=== PATIENT | female | born 1970 | race Caucasian/White ===

== ENCOUNTER 2019-06-06 14:24 | Emergency (ER) | payer SELFPAY ==
[2019-06-06 15:14] VITALS: BP 130/77; PULSE 94; RESP 20; TEMP 39; O2SAT 94; BMI 30.9
[2019-06-06 17:23] VITALS: TEMP 37.3
--- NOTE | 2019-06-06 17:23 | ED_ITS ---
HPI - Fever General: Chief Complaint: Fever Stated Complaint: flu Time Seen by Provider: 06/06/19 17:19 History of Present Illness: HPI Narrative: Patient is a 48-year-old female comes to the ED with fever. Patient was recently seen at urgent care and influenza swab was performed and lab was positive. Her symptoms of fever, body aches and cough started on Thursday. Patient says cough is dry and nonproductive. Patient took ibuprofen and Tylenol earlier today to help with fever.Denies any diarrhea, chest pain, shortness of breath, Abdominal pain, nausea, vomiting, hematuria, dysuria, diarrhea. Review of Systems General: Reports: 10 or more systems reviewed and unremarkable except in HPI and below PFSH ED PFSH: Statuses (acute, chronic, etc) shown below reflect problem list status as previously entered and may not be historically accurate Social History Smoking and tobacco status: current every day smoker Alcohol intake: never Physical Exam Narrative: EXAM NARRATIVE: Patient is a 48-year-old female who doesn't appear to be in any acute pain or distress when I enter the room. She also is showing no signs of respiratory distress. Const: COMMON NORMALS: oriented x3 HENMT: COMMON NORMALS: normocephalic HEAD & SCALP: normocephalic MOUTH: oral and palatal mucosa normal THROAT: posterior oropharynx normal and uvula midline Neck/C-Spine: COMMON NORMALS: supple GENERAL: Yes normal visual inspection Resp: COMMON NORMALS: normal respiratory effort, no retractions, no use of accessory muscles and clear to auscultation bilaterally AUSCULTATION: clear to auscultation bilaterally Cardio: COMMON NORMALS: regular rate, regular rhythm, S1 normal heart sound, S2 normal heart sound, no gallops, no clicks, no murmurs and peripheral pulses 2+ throughout RATE: regular rate RHYTHM: regular rhythm HEART SOUNDS: S1 normal and S2 normal PERIPHERAL PULSES: pulses 2+ throughout GI: COMMON NORMALS: normal to inspection, nondistended, normoactive bowel sounds, soft to palpation, non-tender and no masses PALPATION: Yes soft : COMMON NORMALS: Yes no CVA tenderness BLADDER/KIDNEY EXAM: Yes no CVA tenderness Back/Pelvis: COMMON NORMALS: no CVA tenderness Extremity: GENERAL: Yes normal exam except as noted Neuro: COMMON NORMALS: oriented x3 and moves all extremities Skin: COMMON NORMALS: no rashes or lesions noted GENERAL SKIN EXAM: no rashes or lesions noted Course ED course: Patient was diagnosed with influenza and the urgent care clinic today. Patient is able to drink by mouth and keep them down while here in the ED. Vital Signs: Vital signs: Vital Signs Temperature 98.4 F 06/06/19 18:35 Pulse Rate 83 06/06/19 18:35 Respiratory Rate 16 06/06/19 18:35 Blood Pressure 103/69 06/06/19 18:35 Pulse Oximetry 94 06/06/19 18:35 MDM - Fever MDM Narrative: Medical decision making narrative: Patient is a 48-year-old female comes in in the ED with fever and chills. She was seen at the urgent care clinic today and had a positive influenza test. Chest x-ray was performed here in the ED and showed no acute findings pending radiology report. Imaging Data^: CXR: Attestation: I personally reviewed and interpreted this imaging study as follows: My impression: No acute findings. Pending final radiology report. Discharge Plan Discharge Patient Disposition: Home, Self-Care Clinical Impression: Influenza Condition: Stable Prescriptions: New Tamiflu 75 mg capsule 75 mg PO BID 5 Days Qty: 10 RF: 0 No Action fluoxetine [Prozac] 20 mg capsule 20 mg PO DAILY RF: 0 ibuprofen 800 mg tablet 800 mg PO TID RF: 0 Discharge Orders: Discharge Order (Routine); Ordered 06/06/19 Ordered By: Rah Swartz Referrals: Michela Vera DO [Primary Care Provider] - Discharge Diet: Regular Discharge Activity: Increase activity as tolerated Patient Instructions: Influenza (ED) Activity Restrictions/Additional Instructions: Follow-up with PCP in 5-7 days for reevaluation. Take Tamiflu as prescribed. Drink plenty of fluids and stay hydrated. Take Tylenol and/or ibuprofen as needed for fevers. I would recommend staying home from work tomorrow and getting rest. If he started having a productive cough continuing high fevers and/or trouble breathing please return to the ED Discharge Date/Time: 06/06/19 18:25 Coding Level of Care Code ED Manager Respiratory for Beni Lindsey
--- NOTE | 2019-06-06 17:32 | XR_ITS ---
WS: [id number] Portable AP upright chest, 06/06/2019 Clinical Data: cough and fever Comparison: Portable chest, 02/09/2016. Findings: No nodules, masses or effusions are seen. The heart is normal. The pulmonary vascularity is not increased. No pneumonia or pneumothorax is seen. There is minimal linear atelectasis over the monk rface of the left diaphragm. XR/XR chest 1V portable [id number] Impression: Negative chest.
[2019-06-06 18:35] VITALS: BP 103/69; PULSE 83; RESP 16; TEMP 36.9; O2SAT 94
== END 2019-06-06 18:25 | disposition home or self-care (01) ==
PROVIDERS: Emergency Provider Physician Assistant; Family Provider Family Medicine; PCP Family Medicine
DX: J11.1 Influenza due to unidentified influenza virus with other respiratory manifestations (principal); F17.210 Nicotine dependence, cigarettes, uncomplicated
CPT/HCPCS: 71045; 87804; 99281; 99283

== ENCOUNTER 2019-07-11 09:24 | Emergency (ER) | payer SELFPAY ==
[2019-07-11 09:32] VITALS: BMI 31.5
[2019-07-11 09:35] VITALS: BP 100/70; PULSE 82; RESP 16; TEMP 36.7; O2SAT 99
[2019-07-11] MEDS: eye irrigation 30 mL Btl EYE-RIGHT (09:48)
[2019-07-11] MEDS: tetracaine 0.5% Op Soln 4 mL Btl 1 DROP EYE-RIGHT (09:48)
[2019-07-11] MEDS: fluorescein 1 mg Strip EYE-RIGHT (09:48)
--- NOTE | 2019-07-11 10:35 | ED_ITS ---
HPI - Eye Problem General: Chief complaint: Eye Problems Stated complaint: RIGHT EYE PAIN Time Seen by Provider: 07/11/19 09:31 Source: patient Mode of arrival: ambulatory Limitations: no limitations History of Present Illness: HPI Narrative: Patient is a 48-year-old female who presents to ED today with complaints of right eye pain and redness that began today. Patient denies any injury or trauma to her eye. She is not having any visual changes or loss of vision. She denies foreign body sensation. chief complaint: eye pain and eye redness Onset (ago): hour(s) Duration: constant Location: right eye Eye Symptoms: redness and pain Mechanism: none Associated symptoms: Reports no associated symptoms; Denies fever(s) or headache(s) Treatments Prior to Arrival: none Review of Systems Const: Denies: fever, chills, body aches, change in appetite, change in weight or fatigue Eyes: Reports: eye discomfort and eye redness; Denies: change in vision, blurry vision, blind spots, photophobia, eye discharge, yellow eyes, floaters or seeing flashes ENMT: Denies: throat pain, enlarged tonsils, painful swallowing, ear pain, ear discharge, nasal discharge, nasal congestion, nasal obstruction, post nasal drip or facial/sinus pain Resp: Denies: productive cough or non-productive cough Skin/Breast: Denies: rash Neuro: Denies: headache PFSH ED PFSH: Medical History (Updated 07/11/19 @ 10:35 by SOWMYA Herrmann) Chronic neck pain History of cervical cancer Pain in multiple finger joints Panic attack as reaction to stress Surgical History (Updated 07/07/19 @ 13:31 by Shonna Ruelas DO) H/O LEEP H/O lumpectomy Social History Smoking and tobacco status: current every day smoker cigarettes Packs smoked per day: 0.5 Alcohol intake: never Physical Exam Const: COMMON NORMALS: no apparent distress, average body habitus, oriented x3, no limitations, healthy appearing, alert and well nourished HENMT: COMMON NORMALS: normocephalic, head/scalp atraumatic, hearing grossly normal bilaterally, external ears normal, EAC's normal, TM's normal bilaterally, external nose normal, nasal mucous membranes and turbinates normal, moist oral mucous membranes, oropharynx normal, dentition normal and gingiva normal HEAD & SCALP: normocephalic and atraumatic NOSE: external nose normal and nasal mucous membranes and turbinates normal EXTERNAL EAR: Yes external ears normal EXTERNAL AUDITORY CANAL: EAC's normal TYMPANIC MEMBRANE: TM's normal bilaterally Eye: COMMON NORMALS: PERRL, EOMs intact bilaterally and no scleral icterus GENERAL EYE: normal light reflex VISUAL ACUITY: Yes acuity normal VISUAL KEMP: No peripheral vision loss and No central vision loss ALIGNMENT: Yes alignment normal PERIORBITAL: periorbital findings normal EYELID: eyelids normal CONJUNCTIVA: Yes conjunctiva abnormal (pt with medial R subconjunctival hemorrhage ) SCLERA: sclerae normal CORNEA: Yes corneas normal PUPIL: Yes PERRL and Yes accommodation reflex normal DIRECT OPHTHALMOSCOPY: Yes normal light reflex OTHER: eye pressures: 14mmHg on L eye, 15mmHg on R eye eye was examined with rivas lamp/stain-no abrasion noted, no fb, no tear drop sign there is no hyphema present, no evidence for globe injury/rupture Neck/C-Spine: COMMON NORMALS: full ROM, no lymphadenopathy and no meningeal signs Neuro: COMMON NORMALS: oriented x3 SENSORIUM/ORIENTATION: Yes alert MENINGEAL SIGNS: Yes no meningeal signs Course Vital Signs: Vital signs: Vital Signs Temperature 98.0 F 07/11/19 09:35 Pulse Rate 82 07/11/19 09:35 Respiratory Rate 16 07/11/19 10:37 Blood Pressure 100/70 07/11/19 09:35 Pulse Oximetry 97 07/11/19 10:37 MDM - Eye Problem MDM Narrative: Medical decision making narrative: I do not see anything abnormal on her exam other than a right subconjunctival hemorrhage. Most of these are asymptomatic and since patient seems to be experiencing pain I will go ahead and refer her to ophthalmology for examination. She needs to return to the emergency department for worsening pain or any changes in her vision. Discharge Plan Discharge Patient Disposition: Home, Self-Care Clinical Impression: Subconjunctival hemorrhage of right eye Condition: Stable Prescriptions: No Action ibuprofen 800 mg tablet 800 mg PO TID RF: 0 venlafaxine [Effexor XR] 37.5 mg capsule,extended release 24hr 37.5 mg PO DAILY Qty: 30 RF: 0 Discharge Orders: Discharge Order (Routine); Ordered 07/11/19 Ordered By: Anabela Starkey Referrals: Alexsander Kendrick MD [Physician] - Michela Vera DO [Primary Care Provider] - Activity Restrictions/Additional Instructions: As discussed case management should contact you today or tomorrow to set you up with ophthalmology referral. Please return to the emergency department immediately for worsening pain or any changes in your vision or loss of vision. Discharge Date/Time: 07/11/19 10:37 Coding Level of Care Code ED Photovoltaic Solar Cell Designer for Beni Lindsey
[2019-07-11 10:37] VITALS: RESP 16; O2SAT 97
--- NOTE | 2019-07-11 16:05 | DCPLANNER ---
manager club had message to schedule a follow up appointment for patient with Dr. Kendrick. manager club called the office of Dr. Kendrick, gave clinic patients information, a follow up appointment is scheduled for Friday, July 12, 2019 at 2:30. manager club called patient and informed her of the appointment. Patient stated that she would attend the appointment. manager club was asked to fax records to the clinic, field nurse case manager faxed records to Dr. Kendrick office, [phone].
--- NOTE | 2019-07-13 11:03 | DCPLANNER ---
Patient attended appointment with Dr. Kendrick on 07.12.19.
== END 2019-07-11 10:37 | disposition home or self-care (01) ==
PROVIDERS: Emergency Provider Physician Assistant; Family Provider Family Medicine; PCP Family Medicine
DX: H11.31 Conjunctival hemorrhage, right eye (principal)
CPT/HCPCS: 12345; 99281; 99283

== ENCOUNTER 2019-08-11 08:39 | Outpatient (CLI) | payer SELFPAY ==
--- NOTE | 2019-08-11 08:51 | XR_ITS ---
WS: [id number] LUMBAR SPINE TECHNIQUE: 3 views of the lumbar spine CLINICAL INFORMATION: low back pain COMPARISON: September 05, 2016 FINDINGS: Five [id number] lumbar vertebral bodies. Mild lumbar curve convex left. Disc space heights are w ell preserved. Chronic appearing anterior wedging at T10-T12. Mild facet arthropathy L5-S1. XR/XR lumbar spine 2-3V* [id number] IMPRESSION: 1. Mild lumbar curve convex left. No acute compression fractures. 2. Mild chronic anterior wedging at T10-T12. 3. Mild facet arthropathy L5-S1.
== END 2019-08-11 08:40 | disposition home or self-care (01) ==
LOC: RADWPI 08:43
PROVIDERS: Family Provider Family Medicine; PCP Family Medicine; Visit Provider Family Medicine
DX: M54.5 Low back pain (principal); M47.817 Spondylosis without myelopathy or radiculopathy, lumbosacral region
CPT/HCPCS: 72100

== ENCOUNTER 2019-12-26 15:32 | Outpatient (CLI) | payer SELFPAY ==
[2019-12-26 16:41] LABS: Albumin Level 3.9 g/dL (3.5-5.2); Alkaline Phosphatase 80 IU/L (35-105); Blood Urea Nitrogen 12 mg/dL (6-20); Calcium 9.2 mg/dL (8.5-10.5); Carbon Dioxide 21 mmol/L (22-29); Chloride 107 mmol/L (98-107); Chol HDL Ratio 4.19 mg/dL (0.0-4.40); Cholesterol 180 mg/dL (0-200); Globulin 3.1 g/dL (1.3-4.6); Glomerular Filtration Rate 88.6 mL/min (90-130); Glucose 109 mg/dL (65-115); HDL Cholesterol 43 mg/dL (60-100); LDL Cholesterol Calculated 77 mg/dL (50-129); LDL HDL Ratio 1.79 RATIO (0.00-3.22); Osmolality Calculated 283 mOsm/kg (285-295); Sodium 138 mmol/L (136-145); Total Bilirubin 0.2 mg/dL (0.15-1.2); Triglycerides 298 mg/dL (0-150)
[2019-12-26 16:44] LABS: Alanine Aminotransferase 17 U/L (0-33); Anion Gap 14.7 (5-19); Aspartate Amino Transferase 18 U/L (0-32); Potassium 4.7 mmol/L (3.5-5.1)
== END 2019-12-26 15:33 | disposition home or self-care (01) ==
LOC: LAB 15:34
PROVIDERS: PCP Family Medicine; Visit Provider Family Medicine
DX: Z13.6 Encounter for screening for cardiovascular disorders (principal)
CPT/HCPCS: 36415; 80053; 80061; 85025

== ENCOUNTER 2019-12-27 08:13 | Outpatient (CLI) | payer SELFPAY ==
[2019-12-27 08:23] LABS: Basophils # 0.1 10^3/uL (0.0-0.1); Basophils % 1.2 %; Eosinophils # 0.6 10^3/uL (0.0-0.8); Eosinophils % 6.3 %; Hematocrit 43.2 % (37.0-47.0); Hemoglobin 13.7 g/dL (11.5-15.3); Lymphocytes # 2.5 10^3/uL (0.8-4.8); Lymphocytes % 26.9 %; Mean Corpuscular HGB Conc 31.7 g/dL (30.0-36.0); Mean Corpuscular Hemoglobin 30.5 pg (28.0-34.0); Mean Corpuscular Volume 96.2 fL (81-99); Mean Platelet Volume 10.2 fL (7.4-10.4); Monocytes # 0.6 10^3/uL (0.2-0.9); Monocytes % 6.7 %; Neutrophils # 5.46 10^3/uL (1.8-7.7); Neutrophils % 58.6 %; Nucleated Red Blood Cells % 0 %; Platelet Count 307 10^3/cmm (130-400); Red Blood Count 4.49 10^6/uL (4.1-5.3); Red Cell Distribution Width 12.1 % (12.1-15.1); White Blood Count 9.3 10^3/uL (4.0-10.0)
== END 2019-12-27 08:14 | disposition home or self-care (01) ==
LOC: LAB 08:13
PROVIDERS: PCP Family Medicine; Visit Provider Family Medicine
DX: Z13.6 Encounter for screening for cardiovascular disorders (principal)
CPT/HCPCS: 36415; 85025

== ENCOUNTER → 2020-02-23 13:22 | Outpatient (BNVA) | payer SELFPAY | PROVIDERS: PCP Family Medicine; Visit Provider Family Medicine | DX: Z12.31 Encounter for screening mammogram for malignant neoplasm of breast (principal); Z12.11 Encounter for screening for malignant neoplasm of colon; Z01.419 Encounter for gynecological examination (general) (routine) without abnormal findings | CPT/HCPCS: 88175 ==

== ENCOUNTER → 2020-03-16 14:15 | Outpatient (BNVA) | payer OTHER, SELFPAY | PROVIDERS: PCP Family Medicine; Visit Provider Surgery | DX: Z11.59 Encounter for screening for other viral diseases (principal); Z12.11 Encounter for screening for malignant neoplasm of colon | CPT/HCPCS: 87635 ==

== ENCOUNTER 2020-03-21 05:59 | Day surgery (SDC) | payer SELFPAY ==
[2020-03-21 06:10] VITALS: BP 143/84; PULSE 57; RESP 18; TEMP 34.8; O2SAT 97
[2020-03-21] MEDS: sodium chloride 0.9% 1,000 ML 30 ML IV (06:27)
--- NOTE | 2020-03-21 06:33 | W.PM.OPSUD ---
Surgery/Procedure H&P Update DATE OF PROCEDURE: March 21, 2020 DATE H&P PERFORMED: 02/23/20 H&P UPDATE INFORMATION: I have reviewed H&P completed within last 30 days, I have examined patient prior to procedure and No changes to prior documentation (Patient denies history of colon cancer or bleeding per rectum or nonintentional weight loss and she never had a colonoscopy before.) PREOP DIAGNOSIS: Screening colonoscopy PRIMARY INDICATION FOR PROCEDURE: The same PLANNED PROCEDURE: Operation Date: 03/21/20 07:00 Proposed Procedures p Colonoscopy 53880 Z12.11(Not Applicable) - Adelso Carias MD
--- NOTE | 2020-03-21 06:41 | ANES.PREANE2 ---
Pre-Anesthetic Assessment Pre-Anesthetic Assessment: Height/Weight: Height 1.6 m Weight 79.379 kg Temp Pulse Resp BP Pulse Ox 94.7 F L 57 L 18 143/84 97 03/21/20 06:10 03/21/20 06:10 03/21/20 06:10 03/21/20 06:10 03/21/20 06:10 Preop Diagnosis: Screening colonoscopy Proposed Procedure: Operation Date: 03/21/20 07:00 Proposed Procedures p Colonoscopy 99103 Z12.11(Not Applicable) - Adelso Carias MD Familial anesthetic complications: None Was Beta Lauren taken within 24 hours: N/A Last intake: Intake Last Liquid Date 03/20/20 Last Liquid Time 23:55 Last Solid Date 03/19/20 Social: Social History: Tobacco and No alcohol Exam: Pre-Anes Outpt Exam: alert, oriented x 3, clear to auscultation bilaterally and regular rate & rhythm Airway: Cervical ROM: WNL MP: 4 Dentition: Full Pulmonary: Pulmonary: Asthma GI: GI: GERD Musc/skel: Musc/skel: Lower Back Pain Anesthetic Plan: ASA status: 2 Anesthesia: MAC Risk of > 500 ml blood loss (7ml/kg in children): No Meds/Allergies Current Medications: Current Medications Generic Name Dose Route Start Last Admin Trade Name Freq PRN Reason Stop Dose Admin Sodium Chloride 1,000 mls @ 30 ml s/hr 03/21/20 06:15 03/21/20 06:27 Sodium Chloride 0.9% IV 03/22/20 06:14 30 mls/hr .Q24H BETHANY Administration PFSH Anesthesia PFSH: Medical History (Updated 02/23/20 @ 13:13 by Shonna Ruelas DO) Chronic neck pain History of cervical cancer Pain in multiple finger joints Panic attack as reaction to stress Surgical History H/O LEEP H/O lumpectomy Family History Other Cancer Diabetes Social History Smoking and tobacco status: current every day smoker cigarettes Packs smoked per day: 0.5 Alcohol intake: never Data Anesthesia Cardiac Studies: No Data to Display
[2020-03-21 07:23] VITALS: BP 110/79; PULSE 74; RESP 16; TEMP 36.2; O2SAT 96
[2020-03-21 07:37] VITALS: BP 132/80; PULSE 67; RESP 18; O2SAT 96
== END 2020-03-21 07:42 | disposition home or self-care (01) ==
PROVIDERS: PCP Family Medicine; Visit Provider Surgery
PROC: 0DJD8ZZ Inspection of Lower Intestinal Tract, Via Natural or Artificial Opening Endoscopic (ICD-10-PCS; CPT 45378; principal; 2020-03-21 07:00)
DX: Z12.11 Encounter for screening for malignant neoplasm of colon (principal); J45.909 Unspecified asthma, uncomplicated; Z85.41 Personal history of malignant neoplasm of cervix uteri; Z90.10 Acquired absence of unspecified breast and nipple; Z80.9 Family history of malignant neoplasm, unspecified; F17.210 Nicotine dependence, cigarettes, uncomplicated
CPT/HCPCS: 12345; 45378; J2704; J7030

== ENCOUNTER 2020-04-16 11:46 | Outpatient (CLI) | payer SELFPAY ==
--- NOTE | 2020-04-16 12:00 | MM_ITS ---
WS: [id number] SCREENING DIGITAL MAMMOGRAM WITH CAD HISTORY: screening mammogram COMPARISON: 03/14/2010 Bilateral CC and MLO views submitted. Computer aided detection analyzed. Breast composition: The breasts are extremely dense, which lowers the sensitivity of mammography. No suspicious masses, microcalcifications or architectural distortion. MM/[place] [id number] IMPRESSION: BI-RADS: 1-Negative FOLLOW UP: 1 Year Follow-up
== END 2020-04-16 11:47 | disposition home or self-care (01) ==
LOC: RADSHAW 11:48
PROVIDERS: PCP Family Medicine; Visit Provider Family Medicine
DX: Z12.31 Encounter for screening mammogram for malignant neoplasm of breast (principal)
CPT/HCPCS: 77067

== ENCOUNTER 2020-04-23 14:13 | Emergency (ER) | payer SELFPAY ==
[2020-04-23 14:19] VITALS: BP 144/93; PULSE 90; RESP 20; TEMP 36.5; O2SAT 99; BMI 32.9
--- NOTE | 2020-04-23 14:29 | XR_ITS ---
WS: [id number] Exam: XR chest 1V portable [id number] Date/Time of Exam: 04/23/2020 2:29 PM Reason For Exam: dyspnea/cough Comparison 06/06/2019. Findings: The lungs are clear and fully expanded. Costophrenic angles are sharp. No infiltrates. Bronchovascula r relief appears normal. Cardiac silhouette is unremarkable. Bony elements are intact. XR/XR chest 1V portable [id number] IMPRESSION: Unremarkable chest radiograph.
[2020-04-23 15:23] LABS: ABG PCO2 46.8 mmHg (35-45); Alveolar-Arterial Oxygen Gradi 1.8 mmHg (5-10); Base Excess ABG 3.3 mmol/L (-2.0-2.0); Blood Gas Allen Test Pos; Blood Gas Sample Type Arterial; Carboxyhemoglobin 3.7 %THgb (0.4-20.1); HCO3 ABG 28.8 mmol/L (22-26); HGB O2 Sat 92.6 % (95-100); Ionized Calcium Level - ABG 1.2 mmol/L (1.1-1.4); Methemoglobin 0.8 % (0.4-1.5); PO2 ABG 80.2 mmHg (80.0-100.0); Potassium Level - ABG 3.8 mmol/L (3.5-5.0); Total Hemoglobin 11.7 g/dL (12-16)
[2020-04-23 15:24] LABS: Blood Gas Sample Site Radial, left; Oxygen Device ROOM AIR
== END 2020-04-23 15:38 | disposition left against medical advice (07) ==
LOC: ER 14:38
PROVIDERS: Family Medicine; Emergency Provider Nurse Practitioner Family; PCP Family Medicine
DX: Z53.21 Procedure and treatment not carried out due to patient leaving prior to being seen by health care provider (principal)
CPT/HCPCS: 36600; 71045; 80051; 82330; 82805; 83605; 99281

== ENCOUNTER → 2020-05-16 16:40 | Outpatient (BNVA) | payer SELFPAY | PROVIDERS: PCP Family Medicine; Visit Provider Family Medicine | DX: Z20.822 Contact with and (suspected) exposure to COVID-19 (principal); R05 Cough | CPT/HCPCS: 87635 ==

== ENCOUNTER 2020-05-21 08:09 | Outpatient (CLI) | payer SELFPAY ==
--- NOTE | 2020-05-21 09:03 | PFTS_ITS ---
Date of Study:05/21/20 Date of Dictation: MECHANICS: Forced vital capacity (FVC) is normal. Forced expiratory volume in one second (FEV1) is normal. FEV1/FVC is reduced. FLOW VOLUME LOOP: Minimal scooping. LUNG VOLUMES: Not performed. DIFFUSING CAPACITY FOR CARBON MONOXIDE: Not performed. INTERPRETATION: The postbronchodilator spirometry is consistent with mild obstruction. MTDD
== END 2020-05-21 08:10 | disposition home or self-care (01) ==
LOC: RT 08:11
PROVIDERS: PCP Family Medicine; Visit Provider Family Medicine
DX: R06.2 Wheezing (principal)
CPT/HCPCS: 94060; J7611

== ENCOUNTER 2020-09-09 07:22 | Outpatient (CLI) | payer SELFPAY ==
--- NOTE | 2020-09-09 | XRR_ITS ---
PROCEDURE INFORMATION: Exam: XR Chest Exam date and time: 09/09/2020 7:35 AM Age: 49 years old Clinical indication: Shortness of breath TECHNIQUE: Imaging protocol: XR of the chest. Views: 2 views. COMPARISON: CR XR chest 1V portable [id number] 04/23/2020 2:46 PM FINDINGS: Lungs: Hyperinflation and interstitial prominence. Pleural spaces: No pleural effusion. Heart/Mediastinum: Epicardial fat, without cardiomegaly. Bones/joints: Osteopenia and degenerative change. XR/XR chest 2V* [id number] IMPRESSION: Hyperinflation and interstitial prominence.
== END 2020-09-09 07:23 | disposition home or self-care (01) ==
LOC: RAD 07:27
PROVIDERS: PCP Family Medicine; Visit Provider Family Medicine
DX: R06.02 Shortness of breath (principal)
CPT/HCPCS: 71046

== ENCOUNTER → 2020-11-01 14:10 | Outpatient (BNVA) | payer BC, SELFPAY | PROVIDERS: PCP Family Medicine; Visit Provider Internal Medicine Pulmonary Disease | DX: Z01.818 Encounter for other preprocedural examination (principal); Z20.822 Contact with and (suspected) exposure to COVID-19 | CPT/HCPCS: 87635 ==

== ENCOUNTER 2020-11-07 13:06 | Outpatient (CLI) | payer BC, MEDICAID, SELFPAY ==
--- NOTE | 2020-11-07 13:30 | CT_ITS ---
WS: [id number] CT CHEST TECHNIQUE: Noncontrast CT of the chest with coronal and sagittal reformatted images. CLINICAL INFORMATION: emphysema COMPARISON: None. DLP: 668.[address] scans at [facility] use at least one of these dose optimization techniques: automat ed exposure control; mA and/or kV adjustment per patient size (includes targeted exams where dose is matched to clinical indication); or iterative reconstruction. FINDINGS: Mild chronic emphysematous changes. No acute pulmonary infiltrates. No consolidation or pleural fluid . Slight subsegmental atelectasis in the right middle lobe and right lower lobe. No suspicious pulmon jaymie parenchymal opacities. No mediastinal or hilar lymphadenopathy. No axillary lymphadenopathy. Adrenal glands are normal. Low- attenuation lesion right hepatic lobe likely hepatic cyst measuring 2.0 CM. Left renal cyst measuring 2.5 CM. Small esophageal hiatal hernia. CT/CT chest wo con [id number] IMPRESSION: 1. Mild chronic emphysematous changes. No acute pulmonary infiltrates. 2. Slight subsegmental atelectasis in the right middle lobe and right lower lo be. 3. No mediastinal or hilar lymphadenopathy. 4. Small esophageal hiatal hernia. 5. Left renal cyst measuring 2.5 CCM.
--- NOTE | 2020-11-07 13:55 | PFTS_ITS ---
Date of Study:11/07/20 Date of Dictation: MECHANICS: Forced vital capacity (FVC) is normal. Forced expiratory volume in one second (FEV1) is normal. FEV1/FVC is normal. FLOW VOLUME LOOP: Normal. LUNG VOLUMES: Total lung capacity (TLC) is normal. Residual volume (RV) is normal. DIFFUSING CAPACITY FOR CARBON MONOXIDE: Normal. INTERPRETATION: The pulmonary function tests are normal. There is no significant postbronchodilator response. Lung volumes are normal. Gas exchange (DLCO) is normal. MTDD
== END 2020-11-07 13:07 | disposition home or self-care (01) ==
LOC: RAD 13:08
PROVIDERS: PCP Family Medicine; Visit Provider Internal Medicine Pulmonary Disease
DX: J43.9 Emphysema, unspecified (principal); N28.1 Cyst of kidney, acquired; K44.9 Diaphragmatic hernia without obstruction or gangrene; J98.11 Atelectasis
CPT/HCPCS: 71250; 94060; 94618; 94726; 94729; J7611

== ENCOUNTER → 2021-06-13 12:06 | Outpatient (BNVA) | payer MEDICAID, SELFPAY | PROVIDERS: PCP Family Medicine; Visit Provider Social Worker | DX: F43.0 Acute stress reaction (principal); F33.2 Major depressive disorder, recurrent severe without psychotic features; F41.1 Generalized anxiety disorder | CPT/HCPCS: 90834 ==

== ENCOUNTER → 2021-06-26 11:37 | Outpatient (BNVA) | payer MEDICAID, SELFPAY | PROVIDERS: PCP Family Medicine; Visit Provider Social Worker | DX: F33.1 Major depressive disorder, recurrent, moderate (principal); F41.1 Generalized anxiety disorder | CPT/HCPCS: 90837; 90834 ==

== ENCOUNTER 2021-06-28 23:00 | Emergency (ER) | payer MEDICAID, SELFPAY ==
[2021-06-28 23:09] VITALS: BP 141/74; PULSE 95; RESP 24; TEMP 37; O2SAT 92; BMI 33.6
[2021-06-28 23:45] VITALS: PULSE 87; RESP 18; O2SAT 94
--- NOTE | 2021-06-28 23:47 | XRR_ITS ---
PROCEDURE INFORMATION: Exam: XR Chest Exam date and time: 06/28/2021 11:47 PM Age: 50 years old Clinical indication: Cough and shortness of breath; Patient HX: C/O SOB and cough TECHNIQUE: Imaging protocol: XR of the chest. Views: 1 view. COMPARISON: CT chest [facility] [id number] 11/07/2020 1:59 PM FINDINGS: Lungs: Unremarkable. No consolidation. Pleural spaces: Unremarkable. No pleural effusion. No pneumothorax. Heart/Mediastinum: Unremarkable. No cardiomegaly. Bones/joints: Unremarkable. XR/XR chest 1V portable [id number] IMPRESSION: No acute findings.
[2021-06-28 23:55] VITALS: PULSE 90
[2021-06-29 00:44] VITALS: BP 119/82; PULSE 92; RESP 18; O2SAT 95
[2021-06-29] MEDS: doxycycline 100 mg Tablet PO (01:31)
[2021-06-29 01:40] VITALS: PULSE 103; RESP 16; O2SAT 94
[2021-06-29 01:42] VITALS: PULSE 99
[2021-06-29 02:28] VITALS: PULSE 98; RESP 18; O2SAT 96
--- NOTE | 2021-06-29 02:50 | ED_ITS ---
HPI - SOB/Dyspnea General: Chief Complaint: Shortness of Breath/Dyspnea Stated Complaint: SOB Time Seen by Provider: 06/28/21 23:32 Source: patient and family Mode of arrival: ambulatory History of Present Illness: HPI Narrative: 50-year-old female with a history of COPD. She presents with worsening cough, shortness of breath, wheezing despite use of her inhaler at home. She denies any fever. She has had some scant sputum production. MD elicited complaint: shortness of breath and cough Pertinent past history: COPD Onset (ago): day(s) Context: recent illness Timing: constant and progressively worsening Exacerbating factors: lying flat, exertion and coughing Relieving factors: nothing Known history of: COPD Associated symptoms: Reports chest congestion, chest pain (With cough) and cough; Deny abdominal pain, fever(s), nausea, rash or vomiting Treatment prior to arrival: bronchodilator Review of Systems Const: Denies: fever(s) ENMT: Denies: throat pain Card: Reports: chest pain (With cough) Resp: Reports: chest congestion GI: Denies: abdominal pain, nausea or vomiting PFS ED PFSH: Medical History (Updated 06/29/21 @ 01:09 by Ilan Martin DO) Chronic neck pain Encounter for screening colonoscopy Screening colonoscopy in 10 years History of cervical cancer Pain in multiple finger joints Panic attack as reaction to stress Psychiatric care Stage 1 mild COPD by GOLD classification Surgical History H/O LEEP H/O lumpectomy Family History Other Cancer Diabetes Social History Quit status (tobacco): considering quitting Second hand smoke exposure: Yes Smoking risk assessment/counseling performed?: Yes Alcohol intake: never Lives independently: Yes Household members: none Marital status: / Current occupational status: employed Pets and animals: Yes History of recent travel: No Current gender identity: Female Physical Exam Const: GENERAL APPEARANCE: cooperative and ill appearing (mildly) HENMT: COMMON NORMALS: normocephalic and atraumatic HEAD & SCALP: normocephalic and atraumatic Eye: COMMON NORMALS: Equal, round and reactive pupils present and EOMs intact bilaterally PUPIL: Yes Equal, round and reactive pupils present Chest: COMMONS NORMALS: normal inspection of the chest Resp: AUSCULTATION: wheezes and diminished lung sounds Cardio: COMMON NORMALS: regular rate, regular rhythm and Peripheral pulses 2+ throughout RATE: regular rate RHYTHM: regular rhythm PERIPHERAL PULSES: Peripheral pulses 2+ throughout GI: COMMON NORMALS: Normal to inspection, nondistended, normoactive bowel sounds present Course Vital Signs: Vital signs: Vital Signs Temperature 98.6 F 06/28/21 23:09 Pulse Rate 98 06/29/21 02:28 Respiratory Rate 18 06/29/21 02:28 Blood Pressure 119/82 06/29/21 00:44 Pulse Oximetry 96 06/29/21 02:28 MDM - SOB/Dyspnea Medical Decision Making Chest x-ray is negative. She is improved after breathing treatments here. She is given Solu-Medrol 125 mg IM. Covid PCR is pending. We will try treatment at home. Steroid burst with antibiotic coverage. Scheduled inhaler use. We have written orders for a nebulizer as well. Lab Data Labs/Radiology: Radiology Impressions Chest X-Ray 06/28/21 23:47 IMPRESSION: No acute findings. Discharge Plan Discharge Patient Disposition: Home Clinical Impression: Acute exacerbation of chronic obstructive airways disease Condition: Stable Prescriptions: New doxycycline hyclate 100 mg capsule 100 mg PO BID 7 Days Qty: 14 0RF prednisone 20 mg tablet 60 mg PO DAILY Qty: 15 0RF albuterol sulfate 2.5 mg /3 mL (0.083 %) solution for nebulization 2.5 mg inhalation Q4H PRN (Reason: shortness of breath or wheezing) Qty: 90 1RF (DME) nebulizer and compressor Device See Rx Instructions .ROUTE Qty: 1 0RF Rx Instructions: As directed No Action aripiprazole [Abilify] 2 mg tablet 2 mg PO DAILY Qty: 30 2RF Rx Instructions: 340 B paroxetine HCl 30 mg tablet 30 mg PO DAILY Qty: 30 2RF Rx Instructions: 340 B omeprazole 40 mg capsule,delayed release(DR/EC) 40 mg PO DAILY Qty: 30 2RF Rx Instructions: 340 B meloxicam 15 mg tablet 15 mg PO DAILY 0RF ibuprofen 800 mg tablet 800 mg PO Q8H 0RF tramadol 50 mg tablet PO 0RF gabapentin 300 mg capsule PO 0RF nicotine (polacrilex) 2 mg gum 2 mg buccal Q2H Qty: 50 3RF nicotine 21-14-7 mg/24 hr patch, TD daily, sequential See Rx Instructions transdermal .COMPLEX Qty: 56 0RF Rx Instructions: apply 1-21 mg NICOTINE PATCH daily for 28 days; follow with 1-14 mg PATCH daily for 14 days, then 1-7mg PATCH daily for 14 days transdermal Anoro Ellipta 62.5-25 mcg/actuation blister with device 1 inh inhalation DAILY Qty: 60 3RF albuterol sulfate [ProAir HFA] 90 mcg/actuation HFA aerosol inhaler 2 puff inhalation 6XD PRN (Reason: shortness of breath or wheezing) Qty: 8.5 2RF Rx Instructions: 340 B alprazolam [Xanax] 1 mg tablet 1 mg PO TID PRN0RF Discharge Orders: Discharge ED (Routine); Ordered 06/29/21 Ordered By: Ilan Martin Referrals: Alyssa Huizar DO [Primary Care Provider] - 1-3 days Discharge Diet: Advance as tolerated Discharge Activity: Increase activity as tolerated Patient Instructions: COPD (Chronic Obstructive Pulmonary Disease) (ED) Activity Restrictions/Additional Instructions: Use your inhaler 2 to 4 puffs every 4 hours while awake scheduled for the next 48 hours, then as needed. Other medications as directed. You may take the orde r for nebulizer to the medical supply store on Thursday to be filled. Return for any worsening shortness of breath, fever despite 2-3 doses of antibiotics, chest discomfort, mental status changes, any other concerning symptoms. You should quarantine at home until your Covid test is deemed negative. You should get a call with the results. Coding Level of Care Code ED Reimbursement Counselor for Beni Fwd Exam Detailed
[2021-06-29 03:28] LABS: Adenovirus Not Detected (NOT DETECT); Chlamydia Pneumoniae Not Detected (NOT DETECT); Coronavirus 229E,HKU1,NL63,OC4 Not Detected (NOT DETECT); Human Metapneumovirus Not Detected (NOT DETECT); Human Rhinovirus/Enterovirus Detected (NOT DETECT); Influenza A Not Detected (NOT DETECT); Influenza A H1 Not Detected (NOT DETECT); Influenza A H1-2009 Not Detected (NOT DETECT); Influenza A H3 Not Detected (NOT DETECT); Influenza B Not Detected (NOT DETECT); Mycoplasma Pneumoniae Not Detected (NOT DETECT); Parainfluenza Virus Type 1 Not Detected (NOT DETECT); Parainfluenza Virus Type 2 Not Detected (NOT DETECT); Parainfluenza Virus Type 3 Not Detected (NOT DETECT); Parainfluenza Virus Type 4 Not Detected (NOT DETECT); Respiratory Syncytial Virus A Not Detected (NOT DETECT); Respiratory Syncytial Virus B Not Detected (NOT DETECT); SARS-COV-2 Not Detected (NOT DETECT)
[2021-06-29 03:37] LABS: Human Metapneumovirus Not Detected (NOT DETECT); Human Rhinovirus/Enterovirus Detected (NOT DETECT); Results from Genmark
--- NOTE | 2021-06-29 09:11 | PC.NURSE ---
Informed pt of Negative COVID test
== END 2021-06-29 02:29 | disposition home or self-care (01) ==
PROVIDERS: Emergency Provider Emergency Medicine; PCP Family Medicine
DX: J44.1 Chronic obstructive pulmonary disease with (acute) exacerbation (principal); Z85.41 Personal history of malignant neoplasm of cervix uteri; Z77.22 Contact with and (suspected) exposure to environmental tobacco smoke (acute) (chronic); Z20.822 Contact with and (suspected) exposure to COVID-19
CPT/HCPCS: 71045; 87635; 87801; 94640; 96372; 99283; J2930; J7611

== ENCOUNTER → 2021-07-01 13:16 | Outpatient (BNVA) | payer MEDICAID, SELFPAY | PROVIDERS: PCP Family Medicine; Visit Provider Psychiatry & Neurology Psychiatry | DX: F41.1 Generalized anxiety disorder (principal); F33.1 Major depressive disorder, recurrent, moderate; F17.210 Nicotine dependence, cigarettes, uncomplicated | CPT/HCPCS: 99204; 99999 ==

== ENCOUNTER 2021-07-17 07:51 | Outpatient (CLI) | payer MEDICAID, SELFPAY ==
[2021-07-17 08:40] VITALS: BMI 35.4
--- NOTE | 2021-07-17 08:41 | ECG_ITS ---
[facility] Test Date: 2021-07-17 Pat Name: Yarelis Baeza Department: Room: Gender: Female Leather Patcher: Verónica Cabral : 1970 Requested By: Alexandru [employer] Hal Order Number: [id number] Bren MD: Zoila Apodaca M.D. Interpretive Statements NAME OF STUDY: LEXISCAN SESTAMIBI STRESS TEST INDICATION: Exertional chest pain PROCEDURE: At the baseline, the blood pressure was 119/80 mmHg with a heart rate of 84 bpm. The electrocardiogram showed sinus rhythm, normal axis with nonspecific T wave changes. The Lexiscan was infused over a period of 20 seconds. A total of 0.4 milligrams of Lexiscan was infused. The stress phase was continued for a total of 5 minutes. Heart rate at the end of the stress phase was 101 beats per with a blood pressure of 129/78 mmHg. The EKG at the peak infusion revealed no significant ST-T wave changes. The study was terminated due to protocol completion. Sestamibi was injected 20 seconds after the Lexiscan infusion. Blood pressure at the end of the recovery phase was 130/78 mmHg with a heart rate of 91 beats per minute. CONCLUSION: 1. No significant EKG changes with the LexiScan infusion. 2. No LexiScan induced chest pain or cardiac arrhythmia. 3. Normal blood pressure and heart rate response. 4. Sestamibi/sestamibi perfusion scan pending; see separate report. Electronically Signed On 07-17-2021 18:14:26 CDT by Zoila Apodaca M.D. [email or web address]
--- NOTE | 2021-07-17 08:42 | NMCV_ITS ---
NM celestino perf SPECT r/s* [id number] Yarelis Baeza Age: 50 Gender: F : 1970 Exam Date: 07/17/2021 08:42 Ordering Phys: Alexandru Smith MD Technologist: ADRIENNE Tena Exam Location: [facility] Indications: Exertional dyspnea STRESS TEST Please see separate stress test report in [facility] for full findings IMAGE PROTOCOL Rest/Stress 1 Lexiscan Day Radiopharmaceutical Dose (mCi) Administration Site Administered by Rest: Tc-99m 10.8 IV ADRIENNE Booker Sestamibi Stress:Tc-99m 32.3 IV ADRIENNE Booker Sestamibi Rest: 17-Jul-2021 60 Discovery 630 Stress: 17-Jul-2021 30 Discovery 630 0.4mg Lexiscan. Images obtained in supine and prone position. SPECT RESULTS Technical Quality: Excellent Raw Data Analysis: Normal Image Corrections: No attenuation or motion correction applied Summed Stress Score: 0 Summed Rest Score: 0 Summed Difference Score: 0 PERFUSION FINDINGS SPECT images demonstrate homogeneous tracer distribution throughout the myocardium. FUNCTIONAL RESULTS (calculated via Gated SPECT) Stress Image LV EF (%): 77 Stress EDV (mL):70 TID: 1.24 Stress ESV (mL):16 FUNCTIONAL FINDINGS: The left ventricle is normal in size. Transient Ischemia Dilatation of 1.2. The left ventricular ejection fraction is normal with a value of 77%. There is normal left ventricular wall thickening with no regional wall motion abnormality. Normal end-diastolic and end-systolic volumes. IMPRESSIONS 1. Myocardial perfusion imaging is normal. 2. Overall left ventricular systolic function is normal without regional wall motion abnormalities. 3. The left ventricular ejection fraction is normal with a value of 77%. 4. Transient ischemic dilation index mildly increased at 1.2. This may represent hypertensive response/subendocardial ischemia. Clinical correlation is advised. 5. No prior similar studies to compare. Zoila Apodaca MD (Electronically Signed) Final Date: 17 July 2021 13:34 S
[2021-07-17] MEDS: regadenoson 0.4 Mg/5 ml Syringe IVP (10:16)
[2021-07-17 10:28] VITALS: BP 130/78; PULSE 87
== END 2021-07-17 07:52 | disposition home or self-care (01) ==
LOC: CDL 07:52
PROVIDERS: PCP Family Medicine; Visit Provider Internal Medicine Pulmonary Disease
DX: R06.00 Dyspnea, unspecified (principal); R07.89 Other chest pain
CPT/HCPCS: 78452; 93017; A9500; J2785

== ENCOUNTER → 2021-08-08 12:11 | Outpatient (BNVA) | payer MEDICAID, SELFPAY | PROVIDERS: PCP Family Medicine; Visit Provider Social Worker | DX: F33.1 Major depressive disorder, recurrent, moderate (principal); F41.1 Generalized anxiety disorder | CPT/HCPCS: 90834 ==

== ENCOUNTER → 2021-08-12 12:02 | Outpatient (BNVA) | payer MEDICAID, SELFPAY | PROVIDERS: PCP Family Medicine; Visit Provider Psychiatry & Neurology Psychiatry | DX: F33.1 Major depressive disorder, recurrent, moderate (principal); F41.1 Generalized anxiety disorder; F17.210 Nicotine dependence, cigarettes, uncomplicated; F17.219 Nicotine dependence, cigarettes, with unspecified nicotine-induced disorders; J44.9 Chronic obstructive pulmonary disease, unspecified | CPT/HCPCS: 99214 ==

== ENCOUNTER → 2021-09-30 12:48 | Outpatient (BNVA) | payer MEDICAID, SELFPAY | PROVIDERS: PCP Family Medicine; Visit Provider Psychiatry & Neurology Psychiatry | DX: F33.1 Major depressive disorder, recurrent, moderate (principal); F41.1 Generalized anxiety disorder; F17.210 Nicotine dependence, cigarettes, uncomplicated; J44.9 Chronic obstructive pulmonary disease, unspecified | CPT/HCPCS: 99214 ==

== ENCOUNTER → 2021-10-07 11:33 | Outpatient (BNVA) | payer MEDICAID, SELFPAY | PROVIDERS: PCP Family Medicine; Visit Provider Social Worker | DX: F33.1 Major depressive disorder, recurrent, moderate (principal); F41.1 Generalized anxiety disorder | CPT/HCPCS: 90837; 90834 ==

== ENCOUNTER → 2021-10-14 13:16 | Outpatient (BNVA) | payer MEDICAID, SELFPAY | PROVIDERS: PCP Family Medicine; Visit Provider Internal Medicine Pulmonary Disease | DX: J44.9 Chronic obstructive pulmonary disease, unspecified (principal); R06.00 Dyspnea, unspecified; Z12.2 Encounter for screening for malignant neoplasm of respiratory organs; Z71.6 Tobacco abuse counseling; F17.210 Nicotine dependence, cigarettes, uncomplicated; F32.A Depression, unspecified | CPT/HCPCS: 99214 ==

== ENCOUNTER 2021-10-28 20:42 | Emergency (ER) | payer MEDICAID, SELFPAY ==
[2021-10-28 20:43] VITALS: BP 119/83; PULSE 90; RESP 20; TEMP 36.8; O2SAT 94; BMI 35.8
--- NOTE | 2021-10-28 20:43 | XRR_ITS ---
PROCEDURE INFORMATION: Exam: XR Right Hip Exam date and time: 10/28/2021 9:00 PM Age: 51 years old Clinical indication: Hip pain; Right hip; Additional info: Fall TECHNIQUE: Imaging protocol: Radiologic exam of the Right hip. Views: 1 view hip with pelvis when performed. COMPARISON: CR XR lumbar spine 2-3V* [id number] 08/11/2019 8:54 AM FINDINGS: Bones/joints: Unremarkable. No acute fracture. Soft tissues: Unremarkable. XR/XR hip RT 2-3V wo/w pel* [id number] IMPRESSION: No acute findings.
--- NOTE | 2021-10-28 20:58 | ED_ITS ---
HPI - Fall General: Chief Complaint: Fall Stated Complaint: R hip pain after fall Time Seen by Provider: 10/28/21 20:43 Source: patient and EMS Mode of arrival: EMS Limitations: no limitations History of Present Illness: 51-year-old female who states that she had tripped on a dog bowl in her house just over an hour ago. She states she did fell backwards onto her right hip. She states that she was unable to stand and has been having right hip pain since then. States pain is sharp in nature rates it a 4 out of 10 but is much worse with any movement. She denies any her head or neck pain. She states she does have some low back pain she rates a 4 out of 10 as well. Associated symptoms-after fall: Denies abdominal pain, chest pain or headache(s) Review of Systems Const: Denies: fever(s), chills, body aches or change in appetite Eyes: Denies: blurry vision or eye discomfort ENMT: Denies: throat pain or dental pain Card: Denies: chest pain Resp: Denies: dyspnea GI: Denies: abdominal pain, nausea, vomiting or diarrhea : Denies: dysuria Musc: Reports: extremity pain Skin/Breast: Denies: rash Neuro: Denies: headache(s) Psych: Denies: depression Miguelito/Lymph: Denies: easy bruising All/Imm: Denies: urticaria PFSH ED PFSH: Medical History Chronic neck pain Encounter for screening colonoscopy Screening colonoscopy in 10 years History of cervical cancer Pain in multiple finger joints Panic attack as reaction to stress Psychiatric care Stage 1 mild COPD by GOLD classification Surgical History H/O LEEP H/O lumpectomy Family History Other Cancer Diabetes Social History Smoking and tobacco status: current every day smoker (1ppd currently) cigarettes Packs smoked per day: 1 Years cigarettes smoked: 41 [ Other cigarette details: [id number]] Quit status (tobacco): has tried quititng Number of times tried to quit tobacco: 4 Second hand smoke exposure: Yes Smoking risk assessment/counseling performed?: Yes Alcohol intake: never Lives independently: Yes Household members: none Marital status: / Current occupational status: employed Pets and animals: Yes History of recent travel: No Current gender identity: Female Physical Exam Const: COMMON NORMALS: no acute distress, patient oriented x3 and healthy appearing HENMT: COMMON NORMALS: normocephalic and atraumatic HEAD & SCALP: normocephalic and atraumatic Eye: COMMON NORMALS: Equal, round and reactive pupils present and EOMs intact bilaterally PUPIL: Yes Equal, round and reactive pupils present Neck/C-Spine: COMMON NORMALS: full ROM and supple Chest: COMMONS NORMALS: normal inspection of the chest and normal palpation of entire chest wall Resp: COMMON NORMALS: normal respiratory effort, No retractions, No use of accessory muscles and clear to auscultation bilaterally AUSCULTATION: clear to auscultation bilaterally Cardio: COMMON NORMALS: regular rate, regular rhythm and No murmurs present (Cardio) RATE: regular rate RHYTHM: regular rhythm GI: COMMON NORMALS: Normal to inspection, nondistended, normoactive bowel sounds present, Soft to palpation, non-tender and no masses PALPATION: Yes Soft to palpation Extremity: NARRATIVE EXTREMITY EXAM: Some slight tenderness to patient's right hip does have some pain with range of motion no obvious deformity distal pulses intact Neuro: COMMON NORMALS: patient oriented x3, moves all extremities and no focal motor deficits Psych: COMMON NORMALS: mental status grossly normal, Normal thought process present and cooperative THOUGHT PROCESS: Normal thought process present Skin: COMMON NORMALS: no rashes or lesions noted and no wounds GENERAL SKIN EXAM: no rashes or lesions noted Course Vital Signs: Vital signs: Vital Signs Temperature 98.2 F 10/28/21 20:43 Pulse Rate 72 10/28/21 22:25 Respiratory Rate 14 10/28/21 22:25 Blood Pressure 114/73 10/28/21 22:25 Pulse Oximetry 98 10/28/21 22:25 MDM - Fall Medical Decision Making Patient presents with a right hip contusion from a fall patient CT scan here is normal she is well-appearing here she able ambulate she is stable for discharge at this time. Lab Data Radiology Impressions Hip/Pelvis X-Ray 10/28/21 20:43 IMPRESSION: No acute findings. Hip CT 10/28/21 21:12 IMPRESSION: No acute fracture. Lumbar Spine CT 10/28/21 21:12 IMPRESSION: 1. No acute findings. 2. Incidental findings above. COMMENTS: Consistent with the [employer]'s Incidental Findings Committee white paper (J Am Kelsey Radiol 2018): Any incidental renal lesion less than 1 cm or classified as too small to characterize, or any incidental cystic renal lesion characterized as simple-appearing, is likely benign. No follow-up imaging is recommended for these lesions per consensus recommendations based on imaging criteria. Discharge Plan Discharge Patient Disposition: Home Clinical Impression: Fall Qualifiers: Encounter type: initial encounter Qualified Code(s): W19.XXXA - Unspecified fall, initial encounter Contusion of hip, right Qualifiers: Encounter type: initial encounter Qualified Code(s): S70.01XA - Contusion of right hip, initial encounter Condition: Stable Prescriptions: New methocarbamol 750 mg tablet 750 mg PO Q6H PRN (Reason: spasms) Qty: 20 0RF Naprosyn 500 mg tablet 500 mg PO BID PRN (Reason: pain) Qty: 20 0RF No Action Bevespi Aerosphere 9-4.8 mcg HFA aerosol inhaler 2 puff inhalation BID 0RF nicotine (polacrilex) [Nicorette] 2 mg gum 2 mg buccal Q2H PRN (Reason: nicotine cravings) Qty: 50 3RF omeprazole 40 mg capsule,delayed release(DR/EC) 40 mg PO DAILY Qty: 30 2RF Rx Instructions: 340 B meloxicam 15 mg tablet 15 mg PO DAILY 0RF ibuprofen 800 mg tablet 800 mg PO Q8H PRN (Reason: fever or pain) 0RF tramadol 50 mg tablet 50 mg PO TID PRN (Reason: pain) 0RF nicotine 21-14-7 mg/24 hr patch, TD daily, sequential See Rx Instructions transdermal .COMPLEX Qty: 56 0RF Rx Instructions: apply 1-21 mg NICOTINE PATCH daily for 28 days; follow with 1-14 mg PATCH daily for 14 days, then 1-7mg PATCH daily for 14 days transdermal albuterol sulfate [ProAir HFA] 90 mcg/actuation HFA aerosol inhaler 2 puff inhalation 6XD PRN (Reason: shortness of breath or wheezing) Qty: 8.5 2RF Rx Instructions: 340 B alprazolam [Xanax] 1 mg tablet 0.5 mg PO TID PRN0RF fluoxetine [Prozac] 40 mg capsule 80 mg PO DAILY Qty: 60 2RF trazodone 100 mg tablet 200 mg PO .HS PRN (Reason: insomnia) Qty: 60 2RF aripiprazole [Abilify] 5 mg tablet 5 mg PO .HS Qty: 30 2RF Spiriva with HandiHaler 18 mcg capsule, w/inhalation device 1 cap inhalation DAILY Qty: 30 5RF Rx Instructions: puncture 1 cap using device; one dose = 2 inhalations albuterol sulfate 2.5 mg /3 mL (0.083 %) solution for nebulization 2.5 mg inhalation Q4H PRN (Reason: shortness of breath or wheezing) Qty: 90 1RF (DME) nebulizer and compressor Device See Rx Instructions .Route Qty: 1 0RF Rx Instructions: As directed Discharge Orders: Discharge ED (Routine); Ordered 10/28/21 Ordered By: Garrett Ashley Referrals: Alyssa Huizar DO [Primary Care Provider] - 1-3 days Discharge Diet: Advance as tolerated Discharge Activity: Resume usual activity Patient Instructions: Hip Contusion (ED) Coding Level of Care Code ED Pickle Solution Maker for Beni Lindsey Exam Comprehensive
--- NOTE | 2021-10-28 21:12 | CTR_ITS ---
PROCEDURE INFORMATION: Exam: CT Right Lower Extremity Without Contrast, Hip Exam date and time: 10/28/2021 9:36 PM Age: 51 years old Clinical indication: Injury or trauma; Fall; Blunt trauma; Hip; Right TECHNIQUE: Imaging protocol: CT of the Right lower extremity without contrast was performed. Exam focused on the hip. Radiation optimization: All CT scans at this facility use at least one of these dose optimization techniques: automated exposure control; mA and/or kV adjustment per patient size (includes targeted exams where dose is matched to clinical indication); or iterative reconstruction. COMPARISON: CR (PELVIS, ) 10/28/2021 9:00 PM RADIATION DOSE METRICS: Total DLP (mGy-cm): 2182.17 FINDINGS: Bones/joints: Femoroacetabular alignment is normal. Joint space is preserved. The proximal femur is intact. The visible portion of pelvis and sacrum is intact. No acute fracture. Soft tissues: Visible pelvic musculature is unremarkable. CT/CT hip RT wo con* [id number] IMPRESSION: No acute fracture.
--- NOTE | 2021-10-28 21:12 | CTR_ITS ---
PROCEDURE INFORMATION: Exam: CT Lumbar Spine Without Contrast Exam date and time: 10/28/2021 9:32 PM Age: 51 years old Clinical indication: Injury or trauma; Fall; Blunt trauma (contusions or hematomas) TECHNIQUE: Imaging protocol: Computed tomography of the lumbar spine without contrast. Radiation optimization: All CT scans at this facility use at least one of these dose optimization techniques: automated exposure control; mA and/or kV adjustment per patient size (includes targeted exams where dose is matched to clinical indication); or iterative reconstruction. COMPARISON: MRI Lumbar Spine w/o [id number] 02/21/2017 9:22 AM RADIATION DOSE METRICS: Total DLP (mGy-cm): 2610.33 FINDINGS: Bones/joints: Spinal alignment is normal. Vertebral body height is maintained. No acute fracture. Mild lower lumbar facet spondylosis. The visible portion of the pelvis and sacrum is intact. Visible portions of the ribs are intact. Discs/Spinal canal/Neural foramina: Mild L4-5 spinal stenosis. Generalized disc bulges at all lumbar levels. No large disc herniation. Kidneys and ureters: There is a simple cyst in the left kidney. Intraperitoneal space: Trace pelvic free fluid partially imaged. Soft tissues: Paraspinal soft tissues are unremarkable. CT/CT lumbar spine wo con* [id number] IMPRESSION: 1. No acute findings. 2. Incidental findings above. COMMENTS: Consistent with the [employer]'s Incidental Findings Committee white paper (J Am Kelsey Radiol 2018): Any incidental renal lesion less than 1 cm or classified as too small to characterize, or any incidental cystic renal lesion characterized as simple-appearing, is likely benign. No follow-up imaging is recommended for these lesions per consensus recommendations based on imaging criteria.
[2021-10-28 21:18] VITALS: RESP 20
[2021-10-28] MEDS: morphine 4 mg/mL SDV 1 mL IVP (21:18)
[2021-10-28] MEDS: ondansetron 2 mg/ML SDV 2 mL 4 MG IVP (21:18)
[2021-10-28 21:50] VITALS: BP 114/73; PULSE 75; RESP 16; O2SAT 98
[2021-10-28 22:00] VITALS: BP 114/73; PULSE 72; RESP 14; O2SAT 98
[2021-10-28 22:25] VITALS: BP 114/73; PULSE 72; RESP 14; O2SAT 98
== END 2021-10-28 22:28 | disposition home or self-care (01) ==
PROVIDERS: Emergency Provider Emergency Medicine; PCP Family Medicine
DX: S70.01XA Contusion of right hip, initial encounter (principal); Z85.41 Personal history of malignant neoplasm of cervix uteri; J44.9 Chronic obstructive pulmonary disease, unspecified; F17.210 Nicotine dependence, cigarettes, uncomplicated; W18.09XA Striking against other object with subsequent fall, initial encounter
CPT/HCPCS: 72131; 73502; 73700; 96374; 96375; 99284; J2270; J2405

== ENCOUNTER 2021-12-06 13:01 | Outpatient (CLI) | payer MEDICAID, SELFPAY ==
--- NOTE | 2021-12-06 13:15 | CT_ITS ---
WS: [id number] LDCT LUNG CANCER SCREENING TECHNIQUE: Noncontrast CT of the chest with coronal and sagittal reformatted images. CLINICAL INFORMATION: lung screening COMPARISON: CT chest November 07, 2020 DLP: 66.90 mGy.cm DIvol: Mean CTDIvol: 1.60 (mGy) All CT scans at [facility] use at least one of these dose optimization techniques: automat ed exposure control; mA and/or kV adjustment per patient size (includes targeted exams where dose is matched to clinical indication); or iterative reconstruction. FINDINGS: Moderate chronic emphysematous changes. Tiny 2 mm nodule in the LEFT fissure. Tiny subpleural nodule LEFT lower lobe. No other suspicious pulmonary parenchymal abnormalities. No mediastinal or hilar lymphadenopathy. Small esophageal hiatal hernia. Partially visualized LEFT re nal cyst 2.5 cm. Hypertrophic changes thoracic spine. Adrenal glands are normal. Normal caliber thor acic aorta. No axillary lymphadenopathy. CT/CT lung screening [id number] IMPRESSION: LUNG-RADS: 2-Benign Appearance or Behavior FOLLOW UP: 12 Month: Continue annual screening with LDCT
== END 2021-12-06 13:02 | disposition home or self-care (01) ==
PROVIDERS: PCP Family Medicine; Visit Provider Internal Medicine Pulmonary Disease
DX: Z12.2 Encounter for screening for malignant neoplasm of respiratory organs (principal); F17.210 Nicotine dependence, cigarettes, uncomplicated
CPT/HCPCS: 71271

== ENCOUNTER 2022-07-22 12:26 | Outpatient (CLI) | payer MEDICAID, SELFPAY ==
--- NOTE | 2022-07-22 12:34 | MM_ITS ---
WS: [id number] VIEWS: MLO and CC views both breasts. 3D digital tomosynthesis is also included in this exam. Comparison made with prior exam of 03/14/2010 and 04/16/2020. Findings: There was no sign of mass, architectural distortion or suspicious calcification in either breast. Mikey th breasts are very dense. MM/[place] [id number] Impression: BI-RADS: 2-Benign FOLLOW-UP: 1 Year Follow-up This mammogram was also analyzed by the Computer Aided Detection System R2 Imag e Cnc Mill Set Up Operator.
== END 2022-07-22 12:27 | disposition home or self-care (01) ==
LOC: RAD 12:30
PROVIDERS: PCP Family Medicine; Visit Provider Nurse Practitioner Family
DX: Z12.31 Encounter for screening mammogram for malignant neoplasm of breast (principal)
CPT/HCPCS: 77063; 77067

== ENCOUNTER 2023-09-22 15:12 | Outpatient (CLI) | payer MEDICAID, SELFPAY ==
--- NOTE | 2023-09-22 15:30 | MM_ITS ---
WS: [id number] BILATERAL 3D TOMOSYNTHESIS DIGITAL SCREENING MAMMOGRAPHY WITH CAD CLINICAL INFORMATION: SCREENING HISTORY: Screening mammogram. No current complaints. COMPARISON: 2022 TECHNIQUE: Bilateral CC and MLO views. FINDINGS: The breasts are composed of heterogeneous fibroglandular density tissue, which can limit the detectio n of small underlying mass lesions. No suspicious mass, asymmetry, calcifications, or architectural d istortion. No evidence of malignancy. A few incidental punctate calcifications. MM/[place] [id number] IMPRESSION: BI-RADS: 2-Benign FOLLOW UP: 1 Year Follow-up Recommend return to annual screening mammography.
== END 2023-09-22 15:13 | disposition home or self-care (01) ==
LOC: MOBLMAM 15:16
PROVIDERS: PCP Family Medicine; Visit Provider Family Medicine
DX: Z12.31 Encounter for screening mammogram for malignant neoplasm of breast (principal); R92.323 Mammographic fibroglandular density, bilateral breasts; R92.333 Mammographic heterogeneous density, bilateral breasts; R92.1 Mammographic calcification found on diagnostic imaging of breast
CPT/HCPCS: 77063; 77067